=== PATIENT | female | born 1935 | race Caucasian/White ===

== ENCOUNTER 2016-08-30 15:16 | Inpatient (IN) | payer BC ==
--- NOTE | ~2016-08-30 | DS ---
Discharge Summary [facility] [address] [place]. [address] NAME: ALEXEY GARCIA : 34 STATUS : ADM IN PAT#: [id number] AGE: 81 ADM/REG DATE : 08/31/16 MR#: [id number] REPORT SERV DATE: 09/05/16 DICTATED BY: LIZETH HADLEY DATE: 09/04/16 REPORT STATUS : Draft TRANSCRIBED BY: MODShelbi DATE: 09/04/16 ADMISSION DATE: 08/31/2016 DISCHARGE DATE: 09/04/2016 DISCHARGE DIAGNOSES: 1. Chronic kidney disease almost end-stage and stable, the patient declined hemodialysis. 2. Right pleural effusion status post thoracentesis. 3. Acute on chronic congestive heart failure with cor pulmonale. 4. Hyperkalemia, we are stopping Aldactone for her medication. 5. Chronic respiratory failure. CONSULTANTS: 1. Chris Hutchinson M.D. 2. Papa Velazquez M.D. PROCEDURE: Thoracentesis by Interventional Radiologist a 1.2 L of clear fluid was removed and cultures negative. HISTORY OF PRESENT ILLNESS: This is an 81-year-old female patient, who initially came to the hospital after the fall. She had initial evaluation in the emergency room and was advised to be inpatient care. At that time, her only complaint was left side pain after the fall. Had evaluation for the fracture or other problem which was negative. She also had MRI of the brain and MRI of the C-spine, it did not show any acute finding. She was admitted to the hospital with chronic problems including chronic kidney disease almost stage 4 and 5, and heart failure. She was treated with Bumex initially at the very first day aggressively and her kidney function showed a little worsening problem. [facility] is following the patient. She has been stable. Evaluated by the Physical Therapy and recommended going to rehab, and the patient is willing to get a rehabilitation at the correction facility. During this hospitalization she had a conversation with the [facility], the patient declined hemodialysis and also she expressed that she will like to be a DNR status. She does have a chronic oxygen use at home for chronic right heart failure. Overall, the patient made a maximized inpatient benefit, will be discharged to [facility] for rehab. DISCHARGE MEDICATIONS: 1. Aspirin 81 mg once a day. 2. Plavix 75 mg once a day. 3. Vitamin B12 once a day. 4. Vitamin D twice a day. 5. Colace once a day. 6. Cardura 2 mg once a day. 7. Ferrous sulfate 325 mg once a day. 8. Neurontin 300 mg three times a day. Discharge Summary [facility] [address] [place]. [address] NAME: ALEXEY GARCIA : 34 STATUS : ADM IN PAT#: [id number] AGE: 81 ADM/REG DATE : 08/31/16 MR#: [id number] REPORT SERV DATE: 09/05/16 DICTATED BY: LIZETH HADLEY DATE: 09/04/16 REPORT STATUS : Draft TRANSCRIBED BY: TITI DATE: 09/04/16 9. 50 mg once in the morning time. 10.Levothroid 25 mcg once a day. 11.Melatonin 3 mg once at nighttime. 12.Pravachol 40 mg once afternoon. 13.Sodium bicarb 1300 mg once with the meals. 14.Aldactone was discontinued. 15.Torsemide 40 mg once a day. 16.Hydralazine 75 mg three times a day. 17.Norvasc was discontinued. 18.Tylenol as needed. 19.Procrit with every month with [facility]. DISPOSITION: The patient is discharged to rehab. TIME SPENT: More than 30 minutes. EKL/MODL Lizeth Hadley M.D. / [id number] CC: Jie Novoa III, D.O.
--- NOTE | ~2016-08-30 | HP ---
History And Physical [facility] [address] [place]. [address] NAME: ALEXEY ELLIS : 34 STATUS : ADM IN PAT#: [id number] AGE: 81 ADM/REG DATE : 08/31/16 MR#: [id number] REPORT SERV DATE: 08/31/16 DICTATED BY: OSCAR MARCH DATE: 08/31/16 REPORT STATUS : Draft TRANSCRIBED BY: MODL DATE: 08/31/16 DATE OF ADMISSION: 08/31/2016 CHIEF COMPLAINT: Recurrent falls at home with left hip and left shoulder pain and swelling in her abdomen. HISTORY OF PRESENT ILLNESS: This is an 81-year-old female with a history of chronic kidney disease, stage IV, followed by Dr. Hood Chaparro; history of chronic congestive heart failure with an ejection fraction of 40%; diabetes mellitus type 2; and history of ESBL E. coli urinary tract infections in the past who presents to the emergency room at [facility] with the above-mentioned complaints. History is obtained from the patient and reviewing data available on the [employer]. According to Ms. Ellis she had recurrent falls in the last two to three weeks, which she says mainly is on to her knees. However, at this time, she has also developed pain in her left hip and left shoulder as well. She states that her abdomen has also started swelling, although she knows she has ascites, and years ago, she used to come here for paracentesis. She says she has not done that in a while. She finally decided to come to the emergency room to be evaluated because she was finding it hard to perform activities of daily living. In the emergency room, initial workup revealed large right-sided pleural effusion with cardiomegaly. There is diffuse anasarca pattern with ascites as well. This is all seen on a CT scan of her abdomen and pelvis. She appeared to have volume overload with acute on chronic congestive heart failure along with leukocytosis. Hospitalist Service is asked to admit her for further evaluation and treatment. At the time of my evaluation, she denied any chest pain or palpitations. She did not have orthopnea. She did not have any cough, hemoptysis, night sweats, or weight loss. She has had several falls in the recent past, but without any loss of consciousness. She denied any fever or chills at home. Denied any nausea, vomiting, diarrhea, or dysuria. She has had no recent hematemesis, hematuria, or hematochezia. No other history of recent travel or exposures other than those mentioned above. PAST MEDICAL HISTORY: Her past medical history is significant for history of ascites; history of congestive heart failure; history of diabetes mellitus type 2; chronic kidney disease, stage IV. She also has history of the ESBL E. coli urinary tract infections. She has had back surgery and bilateral knee surgeries as well. SOCIAL HISTORY: She has never smoked, does not drink, or use recreational drugs. FAMILY HISTORY: Noncontributory. MEDICATIONS: Her medications at home were reviewed by me in the chart today and reordered by me. REVIEW OF SYSTEMS: History And Physical [address] [address] NAME: ALEXEY ELLIS : 34 STATUS : ADM IN [facility]#: [id number] AGE: 81 ADM/REG DATE : 08/31/16 MR#: [id number] REPORT SERV DATE: 08/31/16 DICTATED BY: OSCAR MARCH DATE: 08/31/16 REPORT STATUS : Draft TRANSCRIBED BY: TITI DATE: 08/31/16 As in history of present illness. All other systems were reviewed in detail and are quite unremarkable. PHYSICAL EXAMINATION: GENERAL: This is a pleasant 81-year-old, not in any acute distress. She is alert, awake, oriented to time, place, and person. HEENT: Her head is atraumatic and normocephalic. Pupils are equal, reacting to light and accommodating. External ocular muscles are intact. Membranes are moist and pink. Sclerae are nonicteric. NECK: Supple with no jugular venous distention, lymphadenopathy, or thyromegaly. LUNGS: Clear to auscultation with no wheezes, rubs, or crackles. HEART: Heart sounds are regular with no murmurs, rubs, or gallops. ABDOMEN: Soft and nontender. Bowel sounds are present. EXTREMITIES: Showed no cyanosis or clubbing. There is trace pitting lower extremity edema bilaterally. NEUROLOGIC: Grossly intact. No focal sensory or motor deficits. Higher functions appear intact. She was able to move all four extremities. VITAL SIGNS: Her temperature was 97.8, pulse 76, respirations 16 a minute, blood pressure was 163/81, and oxygen saturations were 95%, breathing 2 liters of oxygen via nasal cannula. LABORATORY DATA: Reviewed on the [employer] System showed CMP with a sodium of 135, potassium 4.0, chloride 100, CO2 of 19, and BUN was 51 with a creatinine of 2.77. Her creatinine on 05/10/2016 was 3.20. Blood glucose was 103. ALT, alkaline phosphatase, and AST were within normal limits today. Myoglobin was 148 today. Her BNP was 1469.9. Lactate was 0.7. CBC showed a white blood cell count of 17,700, hemoglobin was 12.6, hematocrit 39.1, and platelet count was 322,000. Her prothrombin time was 15.4 with an INR of 1.2. Urinalysis showed trace ketones, no leukocyte esterase, nitrite was negative, no other gross abnormalities. CT of the abdomen and pelvis were reviewed by me on the PACS today and interpreted by me. Official Radiology report was also reviewed. Per my interpretation, there is ascites with right-sided effusion, possibly hepatic hydrothorax. The heart size is also enlarged, possibly from pericardial effusion. Chest x-ray was reviewed by me on the PACS today and interpreted by me as well. There is enlarged heart shadow, possibly from pericardial effusion. There is a right-sided pleural effusion seen as well. A 12-lead EKG done in the emergency room was reviewed and interpreted by me. There is sinus rhythm with a rate of 70 with a first-degree block. There is right bundle-branch block as well. IMPRESSION: 1. Recurrent falls. 2. Left hip and left shoulder pain. 3. Ascites. 4. Hepatic hydrothorax. 5. Possible pericardial effusion. 6. Volume overload. 7. Acute on chronic congestive heart failure with a known ejection fraction of 40%. 8. Leukocytosis. 9. Diabetes mellitus type 2. 10.Chronic kidney disease, stage IV, stable. History And Physical [address] [address] NAME: ALEXEY ELLIS : 34 STATUS : ADM IN [facility]#: [id number] AGE: 81 ADM/REG DATE : 08/31/16 MR#: [id number] REPORT SERV DATE: 04/07/17 DICTATED BY: OSCAR MARCH DATE: 08/31/16 REPORT STATUS : Draft TRANSCRIBED BY: TITI DATE: 08/31/16 11.Coronary artery disease. 12.History of extended-spectrum beta-lactamase Escherichia coli urinary tract infections. PLAN: We will admit Ms. Ellis to the Hospitalist Service to a cardiac telemetry. We will start her on IV diuretics for a 24-hour period, follow outputs and daily weights, and get an echocardiogram as well. She is followed by [facility] to whom we may ask to see her. Meanwhile, we will obtain cultures, check her urinalysis now, check a procalcitonin level as well. We will also check a TSH today. We will start her on NovoLog insulin per sliding scale for blood sugar control and check her A1c. We will start her on pain control very cautiously and also place her on unfractionated heparin for DVT prophylaxis while she is here. Further recommendations will be after the above tests results. I have discussed the above plans with the patient. Her questions were answered and she is agreeable to the above recommendations. Hospitalist Service will be following her during her stay here. /TITI Oscar March M.D. / [id number] CC: MD Arnav Muro III, D.O.
--- NOTE | ~2016-08-30 | DS ---
Discharge Summary [facility] [address] [place]. [address] NAME: ALEXEY GARCIA : 34 STATUS : DIS IN PAT#: [id number] AGE: 81 ADM/REG DATE : 08/31/16 MR#: [id number] REPORT SERV DATE: 09/06/16 DICTATED BY: LIZETH HADLEY DATE: 09/05/16 REPORT STATUS : Draft TRANSCRIBED BY: MODL DATE: 09/05/16 ADMISSION DATE: 08/31/2016 DISCHARGE DATE: 09/05/2016 DISCHARGE DIAGNOSES: 1. Chronic kidney disease almost end-stage disease, stable. The patient declined hemodialysis. 2. Right pleural effusion, status post thoracentesis. 3. Acute on chronic congestive heart failure with cor pulmonale. 4. Chronic respiratory failure with hypoxia. 5. Hyperkalemia was found on this admission. We stopped Aldactone from her medication this admission. CONSULTANTS: 1. Chris Hutchinson MD. 2. Papa Velazquez M.D. Briefly speaking, patient was treated here for chronic kidney disease with acute and chronic congestive heart failure with diuretics. She remains in stable condition, had a stable hospitalization. She decided to go to [facility] but she changed her mind to [place] and because of the location change, the patient stayed overnight. Please see dictated discharge summary done by myself regarding her detailed hospital course. The patient will be discharged to rehab with the following medications. DISCHARGE MEDICATIONS: 1. Aspirin 81 mg once a day. 2. Plavix 75 mg once a day. 3. Vitamin B12 once a day. 4. Colace once a day. 5. Vitamin D twice a day. 6. Cardura 2 mg once a day. 7. Ferrous sulfate 325 mg once a day. 8. Neurontin 300 mg three times a day. 9. Imdur 15 mg once a day. 10.Levothroid 25 mcg once a day. 11.Melatonin 3 mg once a day. 12.Pravachol 40 mg once at night. 13.Sodium bicarb 1300 mg once with meal. 14.Aldactone discontinued. 15.Torsemide 40 mg once a day. 16.Hydralazine 75 mg three times a day. 17.Norvasc was discontinued. 18.Tylenol was added. 19.Procrit every month with [facility] visit. Spent more than 30 minutes in discharge coordination. Discharge Summary [facility] [address] [place]. [address] NAME: ALEXEY GARCIA : 34 STATUS : DIS IN PAT#: [id number] AGE: 81 ADM/REG DATE : 08/31/16 MR#: [id number] REPORT SERV DATE: 09/06/16 DICTATED BY: LIZETH HADLEY DATE: 09/05/16 REPORT STATUS : Draft TRANSCRIBED BY: TITI DATE: 09/05/16 LAURA/TITI Lizeth Hadley M.D. / [id number] CC: Jie Novoa III, D.O.
--- NOTE | ~2016-08-30 | PUL ---
[address] [address] NAME: ALEXEY GARCIA : 34 STATUS : DIS IN PAT#: [id number] AGE: 81 ADM/REG DATE : 08/31/16 MR#: [id number] REPORT SERV DATE: 09/09/16 DICTATED BY: CHARLIE HALL DATE: 09/09/16 REPORT STATUS : Draft TRANSCRIBED BY: MODL DATE: 09/09/16 PULMONARY FUNCTION TEST PROCEDURE PERFORMED: Overnight oximetry performed on supplemental oxygen. The patient had no significant desaturation with supplemental oxygen. IMPRESSION: Adequate correction of reported hypoxemia with supplemental oxygen. CB/TITI Charlie Hall M.D. / [id number] CC: Jie Novoa III, D.O.
--- NOTE | ~2016-08-30 | CN ---
Consultation Report [address] [address] NAME: ALEXEY ELLIS : 34 STATUS : ADM IN PAT#: [id number] AGE: 81 ADM/REG DATE : 08/31/16 MR#: [id number] REPORT SERV DATE: 08/31/16 DICTATED BY: CHRIS MORALES DATE: 08/31/16 REPORT STATUS : Draft TRANSCRIBED BY: MODShelbi DATE: 08/31/16 DATE OF CONSULTATION: 08/31/2016 REASON FOR CONSULTATION: Volume overload. HISTORY OF PRESENT ILLNESS: Ms. 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 She states that she has fallen twice, both while trying to get in bed. She did not have any loss of consciousness at any point in time. She feels that she is falling predominantly from tripping. However, she presents today mainly with complaints of left arm pain and stiffness after falling. She denies having any chest pains, chest pressures, palpitations, dizziness, or loss of consciousness. She has been taking all of her medications without any problem. She has no other complaints at this point in time. ALLERGIES: NO KNOWN DRUG ALLERGIES. PAST MEDICAL HISTORY: As above. FAMILY HISTORY: Noncontributory for premature cardiovascular disease. SOCIAL HISTORY: The patient lives at home with her son. She functions in a partially dependent manner. She denies drinking alcohol, smoking or doing drugs. REVIEW OF SYSTEMS: As above, all other systems otherwise negative. HOME MEDICATIONS: 1. Tylenol. 2. DuoNeb. 3. Norvasc. 4. Aspirin. 5. Vitamin D. 6. Plavix. 7. Vitamin B12. 8. Colace. 9. Cardura. 10.Ferrous sulfate. 11.Lasix. 12.Neurontin. 13.Hydralazine. 14.Imdur. 15.Synthroid. 16.Melatonin. Consultation Report [address] [address] NAME: ALEXEY ELLIS : 34 STATUS : ADM IN PAT#: [id number] AGE: 81 ADM/REG DATE : 08/31/16 MR#: [id number] REPORT SERV DATE: 08/31/16 DICTATED BY: CHRIS MORALES DATE: 08/31/16 REPORT STATUS : Draft TRANSCRIBED BY: TITI DATE: 08/31/16 17.Systane drops. 18.Pravachol. 19.Sodium bicarbonate. 20.Aldactone. PHYSICAL EXAMINATION: VITAL SIGNS: Blood pressure 163/81, pulse 83, sinus rhythm, temperature 97.8. GENERAL: Age appropriate, somewhat debilitated in general, no acute distress. NEURO: Awake, alert and oriented x3; no focal deficits, appropriate mood. HEAD AND NECK: Normocephalic, atraumatic, elevated jugular venous pressure to approximately 12 cm of water. Moist mucous membranes. RESPIRATORY: Normal work of breathing, positive rales bilaterally from the bases to the mid lung. CV: Regular rhythm, normal S1/S2, no murmurs, rubs or gallops. ABDOMEN: Soft, non-tender, non-distended, no rebound or guarding. EXTREMITIES: 1+ edema in her lower extremities bilaterally, with 1+ pulses throughout. SKIN: Warm, dry and intact; no rash. PERTINENT TEST FINDINGS: Potassium 4.0, creatinine 2.81, BUN 51, GFR 17, glucose 167. White blood cell count elevated at 19.1, hemoglobin 12.1. INR 1.3. Troponin 0.02. BNP 1469. TSH 1.7. EKG with sinus rhythm, first degree AV delay, right bundle-branch block, left anterior fascicular block, inferior infarct. IMPRESSION AND PLAN: Ms. Ellis is a very pleasant 81-year-old female with several comorbidities, including stage 5 chronic kidney disease, moderate ischemic cardiomyopathy, and chronic dyspnea secondary to persistent volume overload due to poor GFR who presents with left arm pain after falling twice in the past one to two weeks, and no other complaints. I am not concerned for an acute cardiac decompensation at this point in time. She does have known chronic dyspnea, which is predominantly as a result of retaining fluid in the setting of a very poor GFR. Renal has played an integral role in managing her diuretics given this, therefore I believe it will be very helpful to get them on board during this stay. In addition, given that her primary complaint is left arm pain after falling, I believe that a workup for musculoskeletal injury in this setting will be prudent. I think that she should be seen by PT/OT as well. Replete electrolytes. Continue her heart failure regimen as written. I did not have her on a beta-fredis as an outpatient given resting bradycardia at that point in time, however, her heart rates have since come up somewhat and I think she may tolerate low-dose beta-fredis. She had a recent echocardiogram done, and I note all of the findings, in light of this, I do not believe she needs a repeat echocardiogram at this point in time. VR/MODL Consultation Report [facility] [address] [place]. [address] NAME: ALEXEY ELLIS : 34 STATUS : ADM IN PAT#: [id number] AGE: 81 ADM/REG DATE : 08/31/16 MR#: [id number] REPORT SERV DATE: 08/31/16 DICTATED BY: CHRIS MORALES DATE: 08/31/16 REPORT STATUS : Draft TRANSCRIBED BY: TITI DATE: 08/31/16 Chris Morales MD / [id number] CC: MD Arnav Muro III, D.O.
--- NOTE | ~2016-08-30 | CN ---
Consultation Report [facility] [address] [place]. [address] NAME: ALEXEY RENE : 33 STATUS : ADM IN PAT#: [id number] AGE: 81 ADM/REG DATE : 08/31/16 MR#: [id number] REPORT SERV DATE: 09/01/16 DICTATED BY: ANDREW PATEL DATE: 08/31/16 REPORT STATUS : Draft TRANSCRIBED BY: TITI DATE: 08/31/16 NEPHROLOGY CONSULTATION DATE OF CONSULTATION: 08/31/2016 INDICATION FOR CONSULTATION: Chronic kidney disease. HISTORY OF PRESENT ILLNESS: Ms. Rene is an 81-year-old female, who was followed by Dr. Chaparro for CKD stage 4. Her recent creatinines range between 2.3 and 2.8 with a maximal value of 3.3 in January 2016. At that time, she received some IV fluids and felt better. She has had recurrent falls at home and abdominal swelling and presented to the ER for evaluation. Chest CT scan demonstrated bilateral pleural effusions, and she has undergone a left thoracenteses by ultrasound guidance with removal of 1 L of fluid. She has also undergone an MRI without contrast due to her recurrent falls and left-sided weakness. There was no evidence of an acute infarct. She according to her son has had episodes where she makes statements that were inappropriate. The patient has been advised about dialysis and has indicated she did not want treatment. This was further discussed with her son. We will need to discuss dialysis at more length and determine code status end of life care if she wishes to decline dialysis. 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 PAST SURGICAL HISTORY: Back surgery; bilateral knee surgery. SOCIAL HISTORY: The patient lives with her son. She has been since 1988. No use of tobacco products, alcohol, or illicit drugs. FAMILY HISTORY: Mother of leukemia, father with heart disease and diabetes. No end- stage renal disease. ALLERGIES: NONE KNOWN. HOME MEDICATIONS: DuoNeb inhaler, Tylenol, Norvasc, aspirin, vitamin D, Plavix, vitamin B12, Colace, Cardura, ferrous sulfate, Lasix, Neurontin, Apresoline, Imdur, Levothyroxine, melatonin, Systane eye drops, Pravachol, sodium bicarbonate, spironolactone. REVIEW OF SYSTEMS: HEENT: No change in visual acuity. She does have left eye blindness. No epistaxis, otic infection, or pharyngitis. Consultation Report [place] [id number] [facility] [id number] NAME: ALEXEY RENE : 33 STATUS : ADM IN PAT#: [id number] AGE: 81 ADM/REG DATE : 08/31/16 MR#: [id number] REPORT SERV DATE: 09/01/16 DICTATED BY: ANDREW PATEL DATE: 08/31/16 REPORT STATUS : Draft TRANSCRIBED BY: TITI DATE: 08/31/16 PULMONARY: No shortness of breath, some cough. No hemoptysis. CARDIAC: Denies chest pain, has had recent falls, has intermittent lower extremity edema. GI: No nausea, vomiting, or melena. : No gross hematuria, dysuria, or pyuria. Has history of ESBL E. coli UTIs. MUSCULOSKELETAL: Generalized weakness, more so on left; recent fall involving left upper extremity pain. INTEGUMENT: No rash. No skin lesions, but does have intermittent itching. NEUROLOGIC: Some left-sided weakness, episodic speech which appears to be inappropriate for situation. Remainder 12-point review of systems negative. PHYSICAL EXAMINATION: GENERAL: Chronically ill female, alert, pleasant, somewhat hard of hearing. VITAL SIGNS: Blood pressure 135/61, temp 97.7, pulse 63, respiratory rate 14. HEENT: Eyes: No scleral icterus. Pupils are equal and reactive to light. Extraocular movement intact. Nares patent. No lesions. Throat, no injection. Mucous membranes somewhat dry. NECK: No thyromegaly, masses, or bruits. CHEST/LUNGS: Some decreased breath sounds at bases posteriorly. Few late crackles posteriorly. No wheezes. CARDIAC: Regular rate and rhythm, 1/6 systolic ejection murmur. No gallop or rub. ABDOMEN: No ascites. No hepatosplenomegaly, masses, or tenderness. BREASTS: Exam not performed. PELVIC: Exam not performed. RECTAL: Exam not performed EXTREMITIES: Trace edema. No calf tenderness. DERMIS: No rash. No skin lesions. NEUROLOGIC: Mild left-sided weakness. Cranial nerves appear intact. MUSCULOSKELETAL: No deformity. IMPRESSION: 1. The patient clinically appears to have slow progression of CKD stage 4, doubt underlying acute kidney injury, baseline creatinine of 2.3 to 2.7 with admission value of 2.77. She is close to needing dialysis and at present declines. 2. Bilateral pleural effusions; status post right thoracentesis. 3. 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 4. Acute on chronic congestive heart failure, ejection fraction 40%. 5. Coronary artery disease with ischemic cardiomyopathy. 6. Type 2 diabetes mellitus. 7. Pulmonary hypertension with cor pulmonale. 8. Recurrent falls. 9. Hypothyroidism. 10.Diabetic neuropathy. 11.Anemia. Consultation Report [address] [place]. [address] NAME: ALEXEY RENE : 33 STATUS : ADM IN [facility]#: [id number] AGE: 81 ADM/REG DATE : 08/31/16 MR#: [id number] REPORT SERV DATE: 09/01/16 DICTATED BY: ANDREW PATEL DATE: 08/31/16 REPORT STATUS : Draft TRANSCRIBED BY: TITI DATE: 08/31/16 12.Lymphedema, presently controlled. 13.Left eye blindness due to retinal artery occlusion. 14.Cerebrovascular accident involving right cerebellar area and right frontoparietal area in 2011. PLAN: 1. Labs. 2. Would continue current medications. 3. Monitor effects of IV Bumex. 4. Establish whether patient will or will not dialyze and then address end-of-life measures depending on response. CG/YOVANYL Andrew Patel M.D. / [id number] CC: MD Arnav Muro III, D.O.
[~2016-08-30 15:16] MED LIST: AMITIZA24 PO; APRES25 PO; APRES50 PO; ASA5GR PO; ASAB PO; B12100T PO; BENEMID500 PO; BIST PO; BUM1 PO; CARDU2 PO; CEFZIL250 MG PO; COREG12 PO; COZAAR100 MG PO; CRESTOR20 MG PO; DSS PO; ETODOLAC ER400 MG OR; EXFORGE1 TA3 PO; GLUCPH8 PO; HUMALOG; HUMALOG SC; HYDRALAZINE100 MG PO; HYDROCHLOROT25 MG PO; IMDUR30 PO; IRON325 MG PO; KDUR20 PO; KLOR-CON M2020 MEQ PO; L20 PO; L40 PO; LANTUS SC; LEVAQUIN750 MG PO; LEVOTHYROXIN25 MCG PO; LOP25 PO; MAXITROL OP; MAXITROL OPH; MELATONIN2.5 M1 PO; MIRALAXPKT; MIRALAXPKT PO; NEUR100 PO; NEUR300 PO; NORV10 PO; NORV5 PO; PLAVIX PO; PRAVAC PO; PRAVACHOL40 MG PO; PRIN20 PO; REFRESH OPH; REFRESH1 % OPH; SENTAB PO; SODBICAR10 PO; SPIRO25 PO; SYSTAN1 OPH; SYSTANE OPH; T PO; ULTRAM50 PO; VITAMIN D1000 UNI1 PO; VITAMIN D31000 UNIT PO; VOLTAREN1 %; ZETIA PO
[2016-08-30] MEDS ORDERED: ASAB PO (19:48)
[2016-08-30] MEDS ORDERED: NEUR300 PO (19:49)
[2016-08-30] MEDS ORDERED: L40 PO (19:50)
[2016-08-30] MEDS ORDERED: NORV5 PO (19:50)
[2016-08-30] MEDS ORDERED: VITAMIN B-121000 MC1 SL (19:51)
[2016-08-30] MEDS ORDERED: VITAMIN D31000 UNIT PO (19:52)
[2016-08-30] MEDS ORDERED: SODBICAR10 PO (19:52)
[2016-08-30] MEDS ORDERED: APRES50 PO (19:52)
[2016-08-30] MEDS ORDERED: FERROUS SULF325 M1 PO (19:53)
[2016-08-30] MEDS ORDERED: MELA3 PO (19:53)
[2016-08-30] MEDS ORDERED: IMDUR30 PO (19:54)
[2016-08-30] MEDS ORDERED: DSS PO (19:54)
[2016-08-30] MEDS ORDERED: PRAVACHOL40 MG PO (19:55)
[2016-08-30] MEDS ORDERED: SPIRO25 PO (19:55)
[2016-08-30] MEDS ORDERED: LEVOTHROID25 MCG PO (19:56)
[2016-08-30] MEDS ORDERED: PLAVIX PO (19:56)
[2016-08-30] MEDS ORDERED: SYSTANE OPH (19:57)
[2016-08-30] MEDS ORDERED: ACET500CAP PO (19:58)
[2016-08-30] MEDS ORDERED: DUONEB INH (20:00)
[2016-08-30] MEDS ORDERED: CARDU2 PO (20:01)
[2016-08-30] MEDS ORDERED: PROCRIT SC (20:05)
[2016-08-30 20:19] LABS: BASOPHILS 0.2 %; BASOPHILS ABSOLUTE 0.04 10/3/uL (0.0-0.16); EOSINOPHILS ABSOLUTE 0.36 10/3/uL (0.0-0.53); HEMOGLOBIN 12.6 g/dL (12.0-16.0); IMMATURE GRANULOCYTES 0.6 %; IMMATURE GRANULOCYTES ABSOLUTE 0.11 10/3/uL (0.0-0.11); LYMPHOCYTES 7.5 %; LYMPHOCYTES ABSOLUTE 1.33 10/3/uL (0.67-4.30); MEAN CORPUS HGB CONC 32.2 g/dL (32.0-36.0); MEAN CORPUSCULAR HEMOGLOB 27.9 pg (26.0-34.0); MEAN PLATELET VOLUME 9.7 fL (9.2-13.0); MONOCYTES 4.3 %; MONOCYTES ABSOLUTE 0.77 10/3/uL (0.21-1.20); NEUTROPHILS 85.4 %; NEUTROPHILS ABSOLUTE 15.13 10/3/uL (2.02-8.40); RBC DISTRIBUTION WIDTH 14.6 % (12.0-16.0)
[2016-08-30 20:20] LABS: HEMATOCRIT 39.1 % (36.0-48.0); MANUAL DIFF NO %; MEAN CORPUSCULAR VOLUME 86.7 fL (80-100); PLATELET COUNT 322 10/3/uL (150-400); RED CELL COUNT 4.51 10/6/uL (4.0-5.6); WHITE BLOOD CELLS 17.7 10/3/uL (4.5-10.5)
[2016-08-30 20:29] LABS: INTERNATIONAL NORMAL RATI 1.2 UNITS (-); PARTIAL THROMBO TIME 32.9 SEC (22.5-37.2); PROTIME (NOT ORD) 15.4 SEC (12.0-14.5)
[2016-08-30 20:31] LABS: ALKALINE PHOSPHATASE 103 U/L (45-117); BUN (BLOOD UREA NITROGEN) 51 MG/DL (6-23); CALCIUM, SERUM 8.8 MG/DL (8.5-10.4); CHEST PAIN PROFILE TAT 0 Hrs 15 Mins; CHLORIDE, SERUM 100 MMOL/L (96-112); CO2 (CARBON DIOXIDE) 19 MMOL/L (24-34); CREATININE 2.77 MG/DL (0.55-1.02); DIRECT BILIRUBIN 0.2 MG/DL (0.0-0.4); GFR AFRICAN AMERICAN 18 ML/MIN (>=60); GFR NON AFRICAN AMERICAN 15 ML/MIN (>=60); GLUCOSE, SERUM 103 MG/DL (60-99); INDIRECT BILIRUBIN(NOT ORDER) 0.4 MG/DL (0.1-0.9); MYOGLOBIN, SERUM 148 NG/ML (0-85); SGOT(AST) 12 U/L (5-40); SGPT(ALT) 16 U/L (5-65); SODIUM, SERUM 135 MMOL/L (135-148); TOTAL BILIRUBIN 0.6 MG/DL (0-1.2); TOTAL PROTEIN 7.1 G/DL (6.0-8.5); TROPONIN I 0.02 NG/ML (<0.05)
[2016-08-30 21:02] LABS: BAND NEUTROPHILS 6 %; EOSINOPHILS 3 %; EOSINOPHILS ABSOLUTE (CALC) 0.53 10/3/uL (0.0-0.53); ER DIFF TAT 0 Hrs 46 Mins; LYMPHOCYTES 5 %; LYMPHOCYTES ABSOLUTE (CALC) 0.89 10/3/uL (0.67-4.30); MONOCYTES 2 %; MONOCYTES ABSOLUTE (CALC) 0.35 10/3/uL (0.21-1.20); NEUTROPHILS ABSOLUTE (CALC) 15.93 10/3/uL (2.02-8.40); SEGMENTED NEUTROPHIL (0) 84 %; TOTAL NUCLEATED CELLS 100
[2016-08-30 21:03] LABS: PLATELET ESTIMATE ADQ (ADEQUATE); RBC MORPHOLOGY NORM (NORMAL)
[2016-08-30 22:43] LABS: ASCORBIC ACID (UR NOT ORDER) NEG (NEG); BILIRUBIN, URINE NEGATIVE (NEG); ER URINALYSIS TAT 0 Hrs 18 Mins; KETONE, URINE TRACE MG/DL (NEG); LEUKOCYTE ESTERASE(NOT OR NEG (NEG); NITRITE (URINE) NEG (NEG); WBC (NOT ORDERED) (RFLEX) 5 (0-5)
[2016-08-31 05:15] LABS: BASOPHILS 0.3 %; BASOPHILS ABSOLUTE 0.05 10/3/uL (0.0-0.16); HEMATOCRIT 36.9 % (36.0-48.0); HEMOGLOBIN 12.1 g/dL (12.0-16.0); IMMATURE GRANULOCYTES 0.9 %; IMMATURE GRANULOCYTES ABSOLUTE 0.17 10/3/uL (0.0-0.11); LYMPHOCYTES 6.8 %; MEAN CORPUS HGB CONC 32.8 g/dL (32.0-36.0); MEAN CORPUSCULAR HEMOGLOB 28.8 pg (26.0-34.0); MEAN CORPUSCULAR VOLUME 87.9 fL (80-100); MEAN PLATELET VOLUME 9.1 fL (9.2-13.0); MONOCYTES 5.6 %; MONOCYTES ABSOLUTE 1.07 10/3/uL (0.21-1.20); NEUTROPHILS 85.4 %; NEUTROPHILS ABSOLUTE 16.27 10/3/uL (2.02-8.40); PLATELET COUNT 266 10/3/uL (150-400); RBC DISTRIBUTION WIDTH 14.6 % (12.0-16.0); WHITE BLOOD CELLS 19.1 10/3/uL (4.5-10.5)
[2016-08-31 05:18] LABS: MANUAL DIFF NO %
[2016-08-31 05:19] LABS: INTERNATIONAL NORMAL RATI 1.3 UNITS (-); PROTIME (NOT ORD) 15.9 SEC (12.0-14.5)
[2016-08-31 05:21] LABS: PARTIAL THROMBO TIME 35.9 SEC (22.5-37.2)
[2016-08-31 05:39] LABS: BUN (BLOOD UREA NITROGEN) 51 MG/DL (6-23); CHLORIDE, SERUM 105 MMOL/L (96-112); CO2 (CARBON DIOXIDE) 18 MMOL/L (24-34); CREATININE 2.81 MG/DL (0.55-1.02); GFR AFRICAN AMERICAN 17 ML/MIN (>=60); GFR NON AFRICAN AMERICAN 15 ML/MIN (>=60); SODIUM, SERUM 137 MMOL/L (135-148)
[2016-08-31 05:48] LABS: GLUCOSE, SERUM 167 MG/DL (60-99)
[2016-08-31 05:49] LABS: CALCIUM, SERUM 8.8 MG/DL (8.5-10.4)
[2016-08-31 15:46] LABS: GLUCOSE BODY FL (NOT ORD) 171 MG/DL; LDH BODY FLUID (NOT ORD) 101 U/L; PROTEIN BODY FLUID 2.7 G/DL
[2016-08-31 17:59] LABS: BD FL SOURCE (NOT ORD) PLEURAL
[2016-09-01 05:39] LABS: BASOPHILS 0.3 %; BASOPHILS ABSOLUTE 0.04 10/3/uL (0.0-0.16); EOSINOPHILS 1.7 %; EOSINOPHILS ABSOLUTE 0.27 10/3/uL (0.0-0.53); HEMATOCRIT 30.9 % (36.0-48.0); IMMATURE GRANULOCYTES ABSOLUTE 0.16 10/3/uL (0.0-0.11); LYMPHOCYTES 5.5 %; LYMPHOCYTES ABSOLUTE 0.88 10/3/uL (0.67-4.30); MANUAL DIFF NO %; MEAN CORPUS HGB CONC 32.4 g/dL (32.0-36.0); MEAN CORPUSCULAR HEMOGLOB 28.7 pg (26.0-34.0); MEAN CORPUSCULAR VOLUME 88.5 fL (80-100); MEAN PLATELET VOLUME 9.4 fL (9.2-13.0); MONOCYTES 9.1 %; MONOCYTES ABSOLUTE 1.44 10/3/uL (0.21-1.20); NEUTROPHILS 82.4 %; NEUTROPHILS ABSOLUTE 13.12 10/3/uL (2.02-8.40); PLATELET COUNT 278 10/3/uL (150-400); RBC DISTRIBUTION WIDTH 14.7 % (12.0-16.0); RED CELL COUNT 3.49 10/6/uL (4.0-5.6); WHITE BLOOD CELLS 15.9 10/3/uL (4.5-10.5)
[2016-09-01 05:50] LABS: CALCIUM, SERUM 8.3 MG/DL (8.5-10.4); CHLORIDE, SERUM 107 MMOL/L (96-112); GFR AFRICAN AMERICAN 15 ML/MIN (>=60); GFR NON AFRICAN AMERICAN 13 ML/MIN (>=60); GLUCOSE, SERUM 142 MG/DL (60-99); PHOSPHORUS, SERUM 3.5 MG/DL (2.5-4.5); POTASSIUM, SERUM 3.9 MMOL/L (3.5-5.3); SODIUM, SERUM 140 MMOL/L (135-148)
[2016-09-01 05:51] LABS: ALBUMIN 2.2 G/DL (3.5-5.0); BUN (BLOOD UREA NITROGEN) 58 MG/DL (6-23); CO2 (CARBON DIOXIDE) 22 MMOL/L (24-34)
[2016-09-01 10:18] LABS: INTERNATIONAL NORMAL RATI 1.3 UNITS (-); PROTIME (NOT ORD) 16.4 SEC (12.0-14.5)
[2016-09-01 10:23] LABS: ALBUMIN 2.2 G/DL (3.5-5.0); DIRECT BILIRUBIN 0.1 MG/DL (0.0-0.4); INDIRECT BILIRUBIN(NOT ORDER) 0.2 MG/DL (0.1-0.9); TOTAL BILIRUBIN 0.3 MG/DL (0-1.2); TOTAL PROTEIN 5.8 G/DL (6.0-8.5)
[2016-09-02 04:55] LABS: HEMATOCRIT 30.5 % (36.0-48.0); HEMOGLOBIN 9.8 g/dL (12.0-16.0); MEAN CORPUS HGB CONC 32.1 g/dL (32.0-36.0); MEAN CORPUSCULAR HEMOGLOB 28.2 pg (26.0-34.0); MEAN CORPUSCULAR VOLUME 87.6 fL (80-100); MEAN PLATELET VOLUME 9.6 fL (9.2-13.0); PLATELET COUNT 291 10/3/uL (150-400); RED CELL COUNT 3.48 10/6/uL (4.0-5.6); WHITE BLOOD CELLS 11.3 10/3/uL (4.5-10.5)
[2016-09-02 04:57] LABS: MANUAL DIFF YES %
[2016-09-02 05:11] LABS: ALBUMIN 2.3 G/DL (3.5-5.0); CALCIUM, SERUM 8.3 MG/DL (8.5-10.4); CHLORIDE, SERUM 106 MMOL/L (96-112); CO2 (CARBON DIOXIDE) 21 MMOL/L (24-34); CREATININE 3.47 MG/DL (0.55-1.02); GFR AFRICAN AMERICAN 14 ML/MIN (>=60); GFR NON AFRICAN AMERICAN 12 ML/MIN (>=60); GLUCOSE, SERUM 124 MG/DL (60-99); PHOSPHORUS, SERUM 3.5 MG/DL (2.5-4.5); POTASSIUM, SERUM 4.4 MMOL/L (3.5-5.3); SODIUM, SERUM 140 MMOL/L (135-148)
[2016-09-02 05:24] LABS: EOSINOPHILS 6 %; EOSINOPHILS ABSOLUTE (CALC) 0.68 10/3/uL (0.0-0.53); IMMATURE GRANS ABSOLUTE (CALC) 0.11 10/3/uL (0.0-0.11); LYMPHOCYTES 6 %; LYMPHOCYTES ABSOLUTE (CALC) 0.68 10/3/uL (0.67-4.30); MONOCYTES 5 %; MONOCYTES ABSOLUTE (CALC) 0.57 10/3/uL (0.21-1.20); MYELOCYTES 1 %; NEUTROPHILS ABSOLUTE (CALC) 9.27 10/3/uL (2.02-8.40); PLATELET ESTIMATE ADQ (ADEQUATE); RBC MORPHOLOGY NORM (NORMAL); SEGMENTED NEUTROPHIL (0) 82 %; TOTAL NUCLEATED CELLS 100
[2016-09-02 05:28] LABS: BUN (BLOOD UREA NITROGEN) 71 MG/DL (6-23)
[2016-09-03 05:02] LABS: BASOPHILS 0.6 %; BASOPHILS ABSOLUTE 0.06 10/3/uL (0.0-0.16); EOSINOPHILS 4.8 %; EOSINOPHILS ABSOLUTE 0.46 10/3/uL (0.0-0.53); HEMATOCRIT 29.6 % (36.0-48.0); HEMOGLOBIN 9.5 g/dL (12.0-16.0); IMMATURE GRANULOCYTES 3.7 %; IMMATURE GRANULOCYTES ABSOLUTE 0.35 10/3/uL (0.0-0.11); LYMPHOCYTES ABSOLUTE 1.05 10/3/uL (0.67-4.30); MEAN CORPUS HGB CONC 32.1 g/dL (32.0-36.0); MEAN CORPUSCULAR HEMOGLOB 28.4 pg (26.0-34.0); MEAN CORPUSCULAR VOLUME 88.4 fL (80-100); MONOCYTES 8.7 %; MONOCYTES ABSOLUTE 0.83 10/3/uL (0.21-1.20); NEUTROPHILS 71.2 %; NEUTROPHILS ABSOLUTE 6.82 10/3/uL (2.02-8.40); PLATELET COUNT 291 10/3/uL (150-400); RBC DISTRIBUTION WIDTH 14.9 % (12.0-16.0); RED CELL COUNT 3.35 10/6/uL (4.0-5.6); WHITE BLOOD CELLS 9.6 10/3/uL (4.5-10.5)
[2016-09-03 05:14] LABS: MANUAL DIFF NO %
[2016-09-03 05:16] LABS: ALBUMIN 2.3 G/DL (3.5-5.0); BUN (BLOOD UREA NITROGEN) 71 MG/DL (6-23); CALCIUM, SERUM 8.4 MG/DL (8.5-10.4); CHLORIDE, SERUM 109 MMOL/L (96-112); CO2 (CARBON DIOXIDE) 22 MMOL/L (24-34); CREATININE 3.47 MG/DL (0.55-1.02); GFR AFRICAN AMERICAN 14 ML/MIN (>=60); GFR NON AFRICAN AMERICAN 12 ML/MIN (>=60); PHOSPHORUS, SERUM 3.7 MG/DL (2.5-4.5); POTASSIUM, SERUM 4.5 MMOL/L (3.5-5.3); SODIUM, SERUM 142 MMOL/L (135-148)
[2016-09-03 05:18] LABS: GLUCOSE, SERUM 171 MG/DL (60-99)
[2016-09-04 05:27] LABS: BASOPHILS 0.5 %; BASOPHILS ABSOLUTE 0.06 10/3/uL (0.0-0.16); EOSINOPHILS 4.3 %; HEMATOCRIT 30.9 % (36.0-48.0); IMMATURE GRANULOCYTES ABSOLUTE 0.35 10/3/uL (0.0-0.11); LYMPHOCYTES 7.4 %; LYMPHOCYTES ABSOLUTE 0.86 10/3/uL (0.67-4.30); MEAN CORPUS HGB CONC 32.4 g/dL (32.0-36.0); MEAN CORPUSCULAR HEMOGLOB 28.6 pg (26.0-34.0); MEAN CORPUSCULAR VOLUME 88.3 fL (80-100); MEAN PLATELET VOLUME 8.9 fL (9.2-13.0); MONOCYTES 10.5 %; MONOCYTES ABSOLUTE 1.22 10/3/uL (0.21-1.20); NEUTROPHILS 74.3 %; NEUTROPHILS ABSOLUTE 8.63 10/3/uL (2.02-8.40); PLATELET COUNT 313 10/3/uL (150-400); WHITE BLOOD CELLS 11.6 10/3/uL (4.5-10.5)
[2016-09-04 05:32] LABS: MANUAL DIFF NO %
[2016-09-04 05:44] LABS: ALBUMIN 2.4 G/DL (3.5-5.0); BUN (BLOOD UREA NITROGEN) 73 MG/DL (6-23); CALCIUM, SERUM 8.3 MG/DL (8.5-10.4); CHLORIDE, SERUM 106 MMOL/L (96-112); CO2 (CARBON DIOXIDE) 21 MMOL/L (24-34); CREATININE 3.37 MG/DL (0.55-1.02); GFR AFRICAN AMERICAN 14 ML/MIN (>=60); GFR NON AFRICAN AMERICAN 12 ML/MIN (>=60); PHOSPHORUS, SERUM 3.5 MG/DL (2.5-4.5); SODIUM, SERUM 137 MMOL/L (135-148)
[2016-09-04 05:45] LABS: GLUCOSE, SERUM 129 MG/DL (60-99)
[2016-09-04 05:46] LABS: POTASSIUM, SERUM 5.3 MMOL/L (3.5-5.3)
== END 2016-09-05 13:30 | DRG 291 ==
LOC: ER 15:16 → 5NO 08-31 00:10
PROVIDERS: Hospitalist; Internal Medicine Nephrology; Internal Medicine Pulmonary Disease; Nurse Practitioner; Specialist
PROC: 0W993ZZ Drainage of Right Pleural Cavity, Percutaneous Approach (ICD-10-PCS; principal; 2016-08-31)
DX: I13.0 Hypertensive heart and chronic kidney disease with heart failure and stage 1 through stage 4 chronic kidney disease, or unspecified chronic kidney disease (principal); I50.23 Acute on chronic systolic (congestive) heart failure; J18.9 Pneumonia, unspecified organism; N17.9 Acute kidney failure, unspecified; J96.10 Chronic respiratory failure, unspecified whether with hypoxia or hypercapnia; J90 Pleural effusion, not elsewhere classified; N18.5 Chronic kidney disease, stage 5; E11.22 Type 2 diabetes mellitus with diabetic chronic kidney disease; I27.2 Other secondary pulmonary hypertension; E11.40 Type 2 diabetes mellitus with diabetic neuropathy, unspecified; Z87.440 Personal history of urinary (tract) infections; I25.5 Ischemic cardiomyopathy; Z79.02 Long term (current) use of antithrombotics/antiplatelets; Z79.82 Long term (current) use of aspirin; E03.9 Hypothyroidism, unspecified; I25.10 Atherosclerotic heart disease of native coronary artery without angina pectoris; Z91.81 History of falling; H54.42 Blindness, left eye, normal vision right eye; Z86.73 Personal history of transient ischemic attack (TIA), and cerebral infarction without residual deficits
CPT/HCPCS: 32555; 70450; 70551; 71010; 71250; 72141; 73030-LT; 74176; 80048; 80069; 80076; 80202; 81001; 82043; 82140; 82570; 82945; 82962; 83605; 83615; 83735; 83874; 83880; 84100; 84145; 84157; 84300; 84443; 84484; 85025; 85610; 85730; 87040; 87070; 87102; 87205; 87449; 87804; 88112; 88305; 93005; 94762; 96374; 97110-GO; 97110-GP; 97116-GP; 97162-GP; 97166-GO; 97530-GP; 97535-GO; 99285; A9270-GY; J1940; J2543; J3370; Q9967